=== PATIENT | male | born 1960 | race Caucasian/White ===

== ENCOUNTER 2019-05-01 04:34 | Emergency (ER) | payer MEDICARE, OTHER ==
[~2019-05-01] VITALS: Ht 177.8 cm; Wt 102.1 kg
[2019-05-01 04:34] VITALS: BP_SYST 130
--- NOTE | 2019-05-01 04:35 | NUR ---
Patient to ER bed 6 for evaluation. Side rails up.
--- NOTE | 2019-05-01 04:40 | NUR ---
Pt BIB BLS ambulance C/O neck and lower back pain S/P fall. Pt has hx of chronic back pain, HTN and a-fib. States he slipped off a counter while getting water. Denies KO, N/V, or any other symptoms at this time. Will continue to monitor.
--- NOTE | 2019-05-01 04:54 | NUR ---
ER Dr. Huerta at bedside examining patient.
[2019-05-01] MEDS ORDERED: ASPI-1153 PO (05:14)
[2019-05-01] MEDS ORDERED: DABI150C PO (05:14)
[2019-05-01] MEDS ORDERED: FURO-150 PO (05:15)
[2019-05-01] MEDS ORDERED: DULO20CA PO (05:15)
[2019-05-01] MEDS ORDERED: MORPHINE 2 MG/ML INJ. SYRINGE IM ONE (05:15)
[2019-05-01] MEDS ORDERED: DILT240C54 PO (05:16)
[2019-05-01] MEDS ORDERED: TAMS-11 PO (05:17)
[2019-05-01] MEDS ORDERED: METO25TA6 PO (05:17)
[2019-05-01] MEDS ORDERED: MORP15TA60 PO (05:17)
--- NOTE | 2019-05-01 05:58 | NUR ---
Patient given written and verbal discharge instructions and verbalizes understanding. ER MD discussed with patient the results and treatment provided. Patient in stable condition. ID arm band removed. Patient educated on pain management and to follow up with PMD. Pain Scale 0. Opportunity for questions provided and answered. Medication side effect fact sheet provided.
== END 2019-05-01 05:57 | disposition home or self-care (01) ==
LOC: SED 04:34
DX: M54.40 Lumbago with sciatica, unspecified side (principal); G89.29 Other chronic pain; I48.91 Unspecified atrial fibrillation; I10 Essential (primary) hypertension; Z88.8 Allergy status to other drugs, medicaments and biological substances; Z79.899 Other long term (current) drug therapy; Z79.82 Long term (current) use of aspirin
CPT/HCPCS: 96372; 99283; J2270